=== PATIENT | female | born 1960 | race Caucasian/White ===

== ENCOUNTER → 2020-04-29 08:55 | Outpatient (CLI) | payer OTHER, SELFPAY ==
--- NOTE | ~2020-04-29 | DEXA_ITS ---
Bone Density Report Name: Angie Ireland Age: 59 Sex: Female Ethnicity: White Date of : 1960 Indication: osteopenia; Referring Provider: Neymar, Elizabeth Study: Bone densitometry was performed. Exam Date: April 29, 2020 Accession number: [id number] Bone Density: Region BMD T-score Z-score Classification AP Spine (L1, L3, L4) 0.898 -1.4 -0.1 Osteopenia Femoral Neck (Left) 0.693 -1.4 -0.2 Osteopenia Total Hip (Left) 0.774 -1.4 -0.5 Osteopenia Femoral Neck (Right) 0.731 -1.1 0.1 Osteopenia Total Hip (Right) 0.817 -1.0 -0.2 Normal Total Hip Mean 0.796 -1.2 -0.4 Osteopenia World Health Organization criteria for BMD impression classify patients as: Normal (T-score at or above -1.0), Osteopenia (T-score between -1.0 and -2.5), or Osteoporosis (T-score at or below -2.5). 10-year Fracture Risk(1): Major Osteoporotic Fracture 7.3% Hip Fracture 0.5% Reported Risk Factors: [place] (), Neck BMD=0.693, BMI=28.7 (1) FRAX(R) Version 3.08. Fracture probability calculated for an untreated patient. Fracture probability may be lower if the patient has received treatment. Previous Exams: Region Exam Age BMD T-score BMD Change BMD Change Date g/cm2 vs Baseline vs Previous AP Spine(L1, L3, L4) 04/29/2020 59 0.898 -1.4 -0.062* -0.072* 01/28/2015 54 0.971 -0.7 0.010 0.010 03/08/2012 51 0.961 -0.8 Total Hip(Left) 04/29/2020 59 0.774 -1.4 -0.020 -0.028* 01/28/2015 54 0.802 -1.1 0.009 0.009 03/08/2012 51 0.793 -1.2 Total Hip(Right) 04/29/2020 59 0.817 -1.0 0.051* 0.031* 01/28/2015 54 0.786 -1.3 0.020 0.020 03/08/2012 51 0.766 -1.4 *Denotes significance at 95% confidence level, LSC for AP Spine = 0.022 g/cm2, LSC for Total Hip = 0.027 g/cm2 Clinical Information Provided by Patient: Has used the following medications: Vitamin D, Calcium Patient maximum height was 62.3 Does not regularly consume dairy products Drinks caffeinated beverages Onset of menses at age 14 Number of children 2 Impression: The patient has low bone mass, based on the Total Spine T-score. The patient has an estimated ten-year risk of hip fracture of 0.5% and an estimated ten-year risk of major fracture of 7.3%, based on the WHO FRAX algorithm. The BMD for the AP Spine(L1, L3, L4) decreased, changing by -0.072 since
== END ==
PROVIDERS: Visit Provider Nurse Practitioner
DX: Z13.820 Encounter for screening for osteoporosis (principal); M85.88 Other specified disorders of bone density and structure, other site; M85.852 Other specified disorders of bone density and structure, left thigh; M85.851 Other specified disorders of bone density and structure, right thigh
CPT/HCPCS: 77080

== ENCOUNTER → 2020-11-15 11:51 | Outpatient (CLI) | payer BC, SELFPAY ==
--- NOTE | ~2020-11-15 | US_ITS ---
EXAMINATION: US thyroid EXAM DATE: 11/15/2020 12:14 INDICATION: Nontoxic goiter. TECHNIQUE: Multiple grayscale and Doppler images of the thyroid were obtained (by a technologist who performed the scan) and subsequently reviewed. Individual nodules and recommendations may be reporte d in accordance with TI-RADS system as designated by the 2017 ACR White Paper TI-RADS committee. Comp arison is made to prior examination from 01/29/2019. FINDINGS: The right thyroid lobe measures 5.6 x 2.1 x 1.5 cm, the left measuring 5.1 x 1.4 x 1.5 cm, mildly enl arged measurements. There is diffusely moderately heterogeneous thyroid echogenicity without any foca l nodule identified. There is no significant interval change. IMPRESSION: Goiter. Reviewed, dictated and finalized at location A. IMPRESSION: Goiter.
--- NOTE | ~2020-11-15 | XR_ITS ---
EXAMINATION: XR chest 2V 11/15/2020 12:22 INDICATION: Bilateral lung opacities PROCEDURE: 2 view chest COMPARISON: No prior studies for comparison. FINDINGS: The lungs are clear. The cardiomediastinal silhouette is within normal limits. There are no pleural effusions. There is no pneumothorax suspected. IMPRESSION: 1: NO ACUTE CARDIOPULMONARY DISEASE. Reviewed, dictated and finalized at location A.
== END ==
PROVIDERS: PCP Internal Medicine; Visit Provider Internal Medicine
DX: R91.8 Other nonspecific abnormal finding of lung field (principal); E04.9 Nontoxic goiter, unspecified
CPT/HCPCS: 71046; 76536

== ENCOUNTER → 2021-05-29 09:25 | Outpatient (CLI) | payer BC, SELFPAY ==
--- NOTE | ~2021-05-29 | US_ITS ---
EXAMINATION: US thyroid EXAM DATE: 05/29/2021 09:38 INDICATION: Nontoxic goiter unspecified. TECHNIQUE: Multiple grayscale and Doppler images of the thyroid were obtained (by a technologist who performed the scan) and subsequently reviewed. Individual nodules and recommendations may be reporte d in accordance with TI-RADS system as designated by the 2017 ACR White Paper TI-RADS committee. Comp malcom is made to prior examination from 11/15/20. FINDINGS: There is diffusely heterogeneous thyroid echogenicity with increased vascularity and moderate enlarge ment. The right thyroid lobe measures 6.8 x 1.6 x 2.0 cm, the left measures 5.1 x 1.4 x 1.4 cm. A foc al isoechoic region was measured at 2.4 x 1.2 x 1.6 cm, however this could just be a lobulation of th e normal thyroid parenchyma given that it has the same heterogeneous echogenicity as remainder of the thyroid. IMPRESSION: 1. Moderate thyromegaly. Reviewed, dictated and finalized at location A. IMPRESSION: 1. Moderate thyromegaly.
== END ==
PROVIDERS: PCP Internal Medicine; Visit Provider Internal Medicine
DX: Z12.31 Encounter for screening mammogram for malignant neoplasm of breast (principal); E04.9 Nontoxic goiter, unspecified
CPT/HCPCS: 76536

== ENCOUNTER → 2021-12-15 08:04 | Outpatient (CLI) | payer BC, SELFPAY ==
--- NOTE | ~2021-12-15 | US_ITS ---
EXAMINATION: US thyroid DATE: 12/15/2021 09:02 INDICATION: Nontoxic goiter. TECHNIQUE: Multiple ultrasound images of the thyroid were obtained. COMPARISON: Ultrasound 05/29/2021 FINDINGS: The right thyroid lobe measures 5.5 x 2.3 x 1.9 cm. The left thyroid lobe measures 5.3 x 1.6 x 1.6 c m. The thyroid demonstrates diffusely heterogeneous hypoechogenicity and increased vascularity. Ther e are two 3 mm hypoechoic nodules in right thyroid lobe, likely not clinically significant and needin g no follow-up. IMPRESSION: 1. Heterogeneous, hypervascular thyroid, consistent with chronic lymphocytic (Gonzalo) thyroiditis. Reviewed, dictated and finalized at location B. IMPRESSION: 1. Heterogeneous, hypervascular thyroid, consistent with chronic lymphocytic (H ashimoto) thyroiditis.
== END ==
PROVIDERS: PCP Internal Medicine; Visit Provider Internal Medicine
DX: E04.9 Nontoxic goiter, unspecified (principal)
CPT/HCPCS: 76536

== ENCOUNTER → 2022-07-16 13:59 | Outpatient (CLI) | payer BC, SELFPAY ==
--- NOTE | ~2022-07-16 | DEXA_ITS ---
Bone Density Report Name: SHANICE ORO Age: 61 Sex: Female Ethnicity: White Date of : 1960 Indication: osteopenia;postmenopausal Referring Provider: Neymar, Elizabeth Study: Bone densitometry was performed. Exam Date: July 16, 2022 Accession number: [id number] Bone Density: Region BMD T-score Z-score Classification AP Spine (L1-L4) 0.901 -1.3 0.1 Osteopenia Femoral Neck (Left) 0.678 -1.5 -0.2 Osteopenia Total Hip (Left) 0.816 -1.0 -0.1 Normal Femoral Neck (Right) 0.722 -1.1 0.2 Osteopenia Total Hip (Right) 0.800 -1.2 -0.2 Osteopenia Total Hip Mean 0.808 -1.1 -0.2 Osteopenia World Health Organization criteria for BMD impression classify patients as: Normal (T-score at or above -1.0), Osteopenia (T-score between -1.0 and -2.5), or Osteoporosis (T-score at or below -2.5). 10-year Fracture Risk(1): Major Osteoporotic Fracture 8.0% Hip Fracture 0.7% Reported Risk Factors: [place] (), Neck BMD=0.678, BMI=29.7 (1) FRAX(R) Version 3.08. Fracture probability calculated for an untreated patient. Fracture probability may be lower if the patient has received treatment. Previous Exams: Region Exam Age BMD T-score BMD Change BMD Change Date g/cm2 vs Baseline vs Previous AP Spine(L1-L4) 07/16/2022 61 0.901 -1.3 -0.066* -0.077* 01/28/2015 54 0.978 -0.6 0.011 0.011 03/08/2012 51 0.967 -0.7 Total Hip(Left) 07/16/2022 61 0.816 -1.0 0.022 0.042* 04/29/2020 59 0.774 -1.4 -0.020 -0.028* 01/28/2015 54 0.802 -1.1 0.009 0.009 03/08/2012 51 0.793 -1.2 Total Hip(Right) 07/16/2022 61 0.800 -1.2 0.033* -0.018 04/29/2020 59 0.817 -1.0 0.051* 0.031* 01/28/2015 54 0.786 -1.3 0.020 0.020 03/08/2012 51 0.766 -1.4 *Denotes significance at 95% confidence level, LSC for AP Spine = 0.022 g/cm2, LSC for Total Hip = 0.027 g/cm2 Clinical Information Provided by Patient: Has used the following medications: Vitamin D, LEVOTHYROXINE Patient maximum height was 63.0 Menopause Age: 58 No regular weight bearing exercise Drinks caffeinated beverages Onset of menses at age 14 Number of children 2 Impression: The patient has low bone mass, based on the Left Femoral Neck T-score. The patient has an estimated ten-year risk of hip fracture of 0.7% and an harshad
== END ==
PROVIDERS: PCP Internal Medicine; Visit Provider Nurse Practitioner
DX: Z13.820 Encounter for screening for osteoporosis (principal); M81.0 Age-related osteoporosis without current pathological fracture; M85.88 Other specified disorders of bone density and structure, other site; M85.852 Other specified disorders of bone density and structure, left thigh; M85.851 Other specified disorders of bone density and structure, right thigh
CPT/HCPCS: 77080

== ENCOUNTER 2024-06-03 14:30 | Outpatient (CLI) | payer BC, SELFPAY ==
--- NOTE | ~2024-06-03 | US_ITS ---
EXAMINATION: US thyroid DATE: 06/03/2024 14:48 INDICATION: Nontoxic goiter. TECHNIQUE: Multiple ultrasound images of the thyroid were obtained. COMPARISON: Ultrasound 12/15/2021 FINDINGS: The right thyroid lobe measures 6.3 x 2.2 x 2.2 cm. The left thyroid lobe measures 5.2 x 1.6 x 1.7 c m. The thyroid is diffusely heterogeneous and hypoechoic. Vascularity is increased. In the right thy roid lobe, there is a 5 mm solid, very hypoechoic, wider than tall nodule with smooth margin without echogenic foci (TI-RADS TR4). IMPRESSION: 1. Heterogeneous, hypervascular thyroid, consistent with chronic lymphocytic (Gonzalo) thyroiditis. 2. Small thyroid nodule, likely not clinically significant. No follow-up is needed. Reviewed, dictated and finalized at location A. IMPRESSION: 1. Heterogeneous, hypervascular thyroid, consistent with chronic lymphocytic (H ashimoto) thyroiditis. 2. Small thyroid nodule, likely not clinically significant. No follow-up is nee ded.
== END 2024-06-03 14:31 | disposition home or self-care (01) ==
LOC: MICIMG 14:32
PROVIDERS: PCP Internal Medicine; Visit Provider Internal Medicine
DX: E04.1 Nontoxic single thyroid nodule (principal)
CPT/HCPCS: 76536